=== PATIENT | female | born 1930 | race Caucasian/White ===

== ENCOUNTER 2016-08-25 12:19 | Emergency (ER) | payer MEDICARE, MEDICAID ==
[2016-06-03 12:09] VITALS: BMI 20.1
[~2016-08-25 12:19] MED LIST: ARICEPT5 MG PO; ASPIRIN EC81 M1 PO; DEPAKOTE250 MG PO; LISINOPRIL10 MG PO; TENORMIN25 MG PO; TIROSINT88 MCG PO; XANAX0.25 MG PO
[2016-08-25 14:40] LABS: BASOPHILS 0.1 % (0.0-2.0); EOSINOPHILS 0.1 % (0-7); HEMATOCRIT 44.3 % (36.0-48.0); HEMOGLOBIN 14.8 g/dL (12-16); IMMATURE GRANULOCYTES 0.4 % (0-5); LYMPHOCYTES 15.2 % (15-50); MCH 28.2 pg (26.0-34.0); MCHC 33.4 g/dL (31.0-37.0); MCV 84.5 fL (80.0-100.0); MEAN PLATELET VOLUME 9.7 fL (7.4-10.4); MONOCYTES 6.7 % (2-11); NEUTROPHILS 77.5 % (40-80); RBC 5.24 10x6/uL (4.00-5.40); RDW 13.5 % (11.5-14.5); WBC 10.9 10x3/uL (4.8-10.8)
[2016-08-25 14:42] LABS: PLATELET COUNT 280 10x3/uL (130-400)
[2016-08-25 15:02] LABS: ALBUMIN 3.6 g/dL (3.4-5.0); ANION GAP 14.3 mmol/L (8-16); BILIRUBIN - TOTAL 0.36 mg/dL (0.2-1.3); CALCIUM 9.2 mg/dL (8.5-10.1); CARBON DIOXIDE 25.3 mmol/L (21.0-32.0); CREATININE - SERUM 0.8 mg/dL (0.6-1.3); POTASSIUM - SERUM 4.6 mmol/L (3.5-5.1); PROTEIN - SERUM 7.7 g/dL (6.4-8.2)
[2016-08-25 15:42] LABS: APTT 28.7 SECONDS (22.8-39.4); INR 0.98 (0.85-1.17); PROTIME 12.8 SECONDS (11.6-15.0)
== END 2016-08-25 18:00 | disposition home or self-care (01) ==
LOC: D.ER 12:19
PROVIDERS: Emergency Medicine
DX: M79.604 Pain in right leg (principal); G30.9 Alzheimer's disease, unspecified; F02.80 Dementia in other diseases classified elsewhere, unspecified severity, without behavioral disturbance, psychotic disturbance, mood disturbance, and anxiety; I10 Essential (primary) hypertension; G20 Parkinson's disease; E03.9 Hypothyroidism, unspecified; E78.5 Hyperlipidemia, unspecified

== ENCOUNTER 2016-09-01 07:50 | Outpatient (CLI) | payer MEDICARE, MEDICAID ==
[~2016-09-01] VITALS: Ht 157.5 cm; Wt 50.9 kg
[2016-09-01 08:58] LABS: BASOPHILS 0.3 % (0.0-2.0); EOSINOPHILS 1.3 % (0-7); HEMATOCRIT 44.5 % (36.0-48.0); HEMOGLOBIN 14.7 g/dL (12-16); IMMATURE GRANULOCYTES 0.5 % (0-5); LYMPHOCYTES 32.7 % (15-50); MCH 28.7 pg (26.0-34.0); MCV 86.7 fL (80.0-100.0); MEAN PLATELET VOLUME 9.6 fL (7.4-10.4); NEUTROPHILS 56.2 % (40-80); RBC 5.13 10x6/uL (4.00-5.40); RDW 13.4 % (11.5-14.5); WBC 7.9 10x3/uL (4.8-10.8)
[2016-09-01 09:12] LABS: CALC OSMOLALITY 276 mosm/kg (275-300); CALCIUM 9.1 mg/dL (8.5-10.1); CARBON DIOXIDE 30.9 mmol/L (21.0-32.0); CHLORIDE - SERUM 100 mmol/L (98-107); CREATININE - SERUM 0.6 mg/dL (0.6-1.3); POTASSIUM - SERUM 4.3 mmol/L (3.5-5.1); SODIUM 136 mmol/L (136-145); UREA NITROGEN 19 mg/dL (7-18); eGFR NON AFRICAN AMERICAN > 90 mL/min (90-120)
[2016-09-01 09:13] LABS: GLUCOSE 158 mg/dL (74-106)
[2016-09-01 09:16] LABS: PLATELET COUNT 218 10x3/uL (130-400)
[2016-09-01] MEDS ORDERED: ARTANE2 MG PO (09:32)
[2016-09-01] MEDS ORDERED: HYDROCODON-ACE1 EAC7 PO (09:36)
[2016-09-01 09:45] VITALS: BP 185/88; Ht 157.5 cm; Wt 50.9 kg
--- NOTE | 2016-09-01 12:05 | NUR ---
1200-RECD TO ROOM. AROUSES EASILY TO NAME CALL. IV PATENT. DENIES PAIN.
--- NOTE | 2016-09-01 13:48 | NUR ---
1300-IV D/C AND UP TO BATHROOM. 1330-DISCHARGE INSTRUCTIONS REVIEWED WITH PATIENT AND GRANDDAUGHTER. D/C HOME VIA WHEELCHAIR
== END 2016-09-01 13:30 | disposition home or self-care (01) ==
LOC: D.MRI 07:50 → D.OPS 07:50 → D.MRI 10:30 → D.OPS 13:30
PROVIDERS: Anesthesiology
DX: M25.551 Pain in right hip (principal); F03.90 Unspecified dementia, unspecified severity, without behavioral disturbance, psychotic disturbance, mood disturbance, and anxiety; I25.10 Atherosclerotic heart disease of native coronary artery without angina pectoris; I10 Essential (primary) hypertension; Z95.5 Presence of coronary angioplasty implant and graft

== ENCOUNTER 2016-12-19 08:36 | Outpatient (CLI) | payer MEDICARE, MEDICAID ==
[~2016-12-19 08:36] MED LIST changes: +ARTANE2 MG PO; +HYDROCODON-ACE1 EAC7 PO
[2016-12-19 09:33] LABS: BASOPHILS 0.5 % (0-2); EOSINOPHILS 1.6 % (0-7); HEMATOCRIT 40.7 % (36.0-48.0); HEMOGLOBIN 13.8 g/dL (12-16); IMMATURE GRANULOCYTES 0.4 % (0-5); LYMPHOCYTES 33.2 % (15-50); MCH 29.9 pg (26.0-34.0); MCHC 33.9 g/dL (31.0-37.0); MCV 88.1 fL (80.0-100.0); MEAN PLATELET VOLUME 9.4 fL (7.4-10.4); MONOCYTES 9.6 % (2-11); NEUTROPHILS 54.7 % (40-80); PLATELET COUNT 254 10x3/uL (130-400); RBC 4.62 10x6/uL (4.00-5.40); RDW 13.6 % (11.5-14.5); WBC 5.5 10x3/uL (4.8-10.8)
[2016-12-19 09:49] LABS: CALC OSMOLALITY 278 mosm/kg (275-300); CALCIUM 8.8 mg/dL (8.5-10.1); CARBON DIOXIDE 27.9 mmol/L (21.0-32.0); CHLORIDE - SERUM 105 mmol/L (98-107); CREATININE - SERUM 0.7 mg/dL (0.6-1.3); GLUCOSE 118 mg/dL (74-106); POTASSIUM - SERUM 3.8 mmol/L (3.5-5.1); SODIUM 139 mmol/L (136-145); UREA NITROGEN 12 mg/dL (7-18); eGFR NON AFRICAN AMERICAN 84 mL/min (90-120)
[2016-12-19] MEDS ORDERED: ATIVAN0.5 MG PO (10:24)
[2016-12-19 10:27] VITALS: BP 217/92; Ht 157.5 cm
--- NOTE | 2016-12-19 14:44 | NUR ---
1400-IV DISCONTINUED, ASSISTED TO DRESS IN PERSONAL CLOTHES. DISCHARGE INSTRUCTIONS GIVEN, ESCORTED VIA WHEELCHAIR TO PERSONAL CAR, LEFT WITH GRANDDAUGHTER DRIVING.
== END 2016-12-19 14:00 ==
LOC: D.OPS 08:36 → D.MRI 08:36 → D.OPS 14:00
PROVIDERS: Anesthesiology
DX: M25.551 Pain in right hip (principal); I10 Essential (primary) hypertension; Z95.5 Presence of coronary angioplasty implant and graft; E03.9 Hypothyroidism, unspecified; G20 Parkinson's disease; R94.31 Abnormal electrocardiogram [ECG] [EKG]; R00.1 Bradycardia, unspecified

== ENCOUNTER 2016-12-22 18:36 | Emergency (ER) | payer MEDICARE, MEDICAID ==
[~2016-12-22 18:36] MED LIST changes: +ATIVAN0.5 MG PO
[2016-12-22 19:25] LABS: BASOPHILS 0.3 % (0-2); EOSINOPHILS 1.1 % (0-7); HEMATOCRIT 41.3 % (36.0-48.0); HEMOGLOBIN 13.7 g/dL (12-16); IMMATURE GRANULOCYTES 0.2 % (0-5); LYMPHOCYTES 30.6 % (15-50); MCH 29.1 pg (26.0-34.0); MCHC 33.2 g/dL (31.0-37.0); MCV 87.7 fL (80.0-100.0); MEAN PLATELET VOLUME 9.4 fL (7.4-10.4); MONOCYTES 12.8 % (2-11); PLATELET COUNT 225 10x3/uL (130-400); RBC 4.71 10x6/uL (4.00-5.40); RDW 13.6 % (11.5-14.5); WBC 6.5 10x3/uL (4.8-10.8)
[2016-12-22 19:55] LABS: ALBUMIN 3.3 g/dL (3.4-5.0); ALKALINE PHOSPHATASE 50 U/L (46-116); ALT (SGPT) 14 U/L (10-68); BILIRUBIN - TOTAL 0.33 mg/dL (0.2-1.3); CALC OSMOLALITY 280 mosm/kg (275-300); CALCIUM 9.4 mg/dL (8.5-10.1); CHLORIDE - SERUM 103 mmol/L (98-107); CREATININE - SERUM 0.7 mg/dL (0.6-1.3); GLUCOSE 122 mg/dL (74-106); POTASSIUM - SERUM 4.4 mmol/L (3.5-5.1); PROTEIN - SERUM 7.2 g/dL (6.4-8.2); SODIUM 138 mmol/L (136-145); UREA NITROGEN 25 mg/dL (7-18); eGFR NON AFRICAN AMERICAN 84 mL/min (90-120)
== END 2016-12-22 22:49 | disposition home or self-care (01) ==
LOC: D.ER 18:36
PROVIDERS: Physician Assistant Medical
DX: I10 Essential (primary) hypertension (principal); G30.9 Alzheimer's disease, unspecified; F02.80 Dementia in other diseases classified elsewhere, unspecified severity, without behavioral disturbance, psychotic disturbance, mood disturbance, and anxiety; E78.5 Hyperlipidemia, unspecified; E03.9 Hypothyroidism, unspecified

== ENCOUNTER 2017-02-04 05:27 | Day surgery (SDC) | payer MEDICARE, MEDICAID ==
[2017-02-02 10:02] LABS: CALC OSMOLALITY 279 mosm/kg (275-300); CALCIUM 8.6 mg/dL (8.5-10.1); CARBON DIOXIDE 31.7 mmol/L (21.0-32.0); CHLORIDE - SERUM 103 mmol/L (98-107); CREATININE - SERUM 0.7 mg/dL (0.6-1.3); GLUCOSE 125 mg/dL (74-106); POTASSIUM - SERUM 4.3 mmol/L (3.5-5.1); SODIUM 138 mmol/L (136-145); UREA NITROGEN 20 mg/dL (7-18); eGFR NON AFRICAN AMERICAN 84 mL/min (90-120)
[2017-02-02 10:05] LABS: BASOPHILS 0.4 % (0-2); HEMATOCRIT 39.1 % (36.0-48.0); HEMOGLOBIN 12.7 g/dL (12-16); IMMATURE GRANULOCYTES 0.4 % (0-5); LYMPHOCYTES 37.1 % (15-50); MCH 28.7 pg (26.0-34.0); MCHC 32.5 g/dL (31.0-37.0); MCV 88.5 fL (80.0-100.0); MEAN PLATELET VOLUME 9.4 fL (7.4-10.4); MONOCYTES 9.4 % (2-11); NEUTROPHILS 51.7 % (40-80); RBC 4.42 10x6/uL (4.00-5.40); RDW 14.2 % (11.5-14.5); WBC 7.4 10x3/uL (4.8-10.8)
[2017-02-02 10:09] LABS: PLATELET COUNT 279 10x3/uL (130-400)
[~2017-02-04] VITALS: Ht 154.9 cm; Wt 50.8 kg
[~2017-02-04 05:27] MED LIST changes: +ZESTRIL20 MG PO
[2017-02-04 08:32] VITALS: BP 127/57; Ht 154.9 cm; Wt 50.8 kg
--- NOTE | 2017-02-06 11:49 | HP ---
PATIENT: CHEPE CHRISTENSEN MEDICAL RECORD: [id number] ACCOUNT: [id number] LOCATION:[facility] : 32 ADMISSION DATE: 02/04/17 HISTORY AND PHYSICAL EXAMINATION HISTORY OF PRESENT ILLNESS: The patient is a very poor risk for an operative procedure to resect a rectal mass. We are going to proceed with argon plasma anticoagulation therapy. The patient has tremors. She has dementia. The risks, possible complications and alternatives to proctoscopy with argon plasma coagulation therapy to a rectal polyp at 15 cm were explained to the patient. She elects to proceed. HOME MEDICATIONS: Please see the nursing list. ALLERGIES: No known drug allergies. PAST MEDICAL AND SURGICAL HISTORY: Hypothyroidism, dementia, coronary stents times 1, gastroesophageal reflux, coronary artery disease and hypertension. PHYSICAL EXAMINATION: GENERAL: The patient appears chronically ill. Does not appear acutely ill. VITAL SIGNS: Reviewed. HEAD: External ears appear normal. EYES: Extraocular movements are intact. NECK: Trachea is midline. CHEST: No intercostal retractions. PULMONARY: Nonlabored, no stridor. ABDOMEN: Nontender. IMPRESSION: History of a rectal polyp, which is quite suspicious. PLAN: Biopsy and ablation with the argon plasma uniforms sales representative. TRANSINT:[id number] Voice Confirmation ID: [id number] DOCUMENT ID: [id number] MARIA G BLACK MD at 1149 CC: [id number] DICTATION DATE: 02/04/17 1141 SALES ORDER COORDINATOR: 02/04/17 1203 [facility] 02/04/17 [place] [address]
--- NOTE | 2017-02-06 11:49 | OP ---
PATIENT NAME: CHEPE CHRISTENSEN MEDICAL RECORD: [id number] :31 LOCATION:D.[facility] ADMISSION DATE: SURGEON: MARIA G BLACK MD DATE OF OPERATION: 02/04/2017 PREOPERATIVE DIAGNOSIS: Rectal polyp. POSTOPERATIVE DIAGNOSIS: Rectal polyp with significant regrowth of the rectal polyp, which was very suspicious for malignancy. PROCEDURES: Flexible proctoscopy with piecemeal snare polypectomy and then ablation of the base of the polyp with the argon plasma lehr loader. SURGEON: Maria G Black MD DELIVERY TRUCK DRIVER HEAVY: None. ESTIMATED BLOOD LOSS: Minimal. ANESTHESIA: General. COMPLICATIONS: None. HOSPITAL COURSE: The patient has a very suspicious rectal polyp. It is 15-16 cm. The patient underwent a polypectomy back in February 2016. 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 The patient is not candidate for chemotherapy or radiation even if this does represent a malignancy. The risks, possible complications and alternatives to treatment the procedure were explained to the patient. She elects to proceed. She is not a candidate for chemotherapy or radiation. Her family understands this and they are willing to take the risk that this lesion could degenerate into an invasive malignancy. 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 OPERATIVE COURSE: The patient was conveyed to the operating room electively on 02/04/2017. General anesthesia was induced by anesthesia staff. The patient was placed in the Padilla position. A digital rectal examination was performed. A colonoscope was inserted through the anus. It was advanced to the rectosigmoid junction. I took a snare and performed a piecemeal snare polypectomy of about 80% of the polyp. The polypoid pieces were then grasped with an endoscopic retrieval net and were withdrawn through the anus. I readvanced the endoscope. Cold endoscopic biopsies were obtained at the base of the polyp. The remaining base of the polyp was then ablated with the argon plasma lehr loader utilizing the right colon setting in the forced mode. I will see the patient in my office in 2-3 weeks. On digital examination, I can barely feel the polyp, so it may be within range of a local excision. It is on a fold. On the other hand, it may be very difficult to get to. TRANSINT:[id number] Voice Confirmation ID: [id number] DOCUMENT ID: [id number] OPERATIVE REPORT [id number] CHEPE CHRISTENSEN ROBERT MD at 1149 CC: ROZ LAWSON MD, KAVON SANTOS M.D.,[facility] and IVONNE COE [id number] DICTATION DATE: 02/04/17 1254 SPOT MAN: 02/04/17 1727 [facility] 02/04/17 [place] [id number]
== END 2017-02-04 14:20 | disposition home or self-care (01) ==
LOC: D.OPS 05:27 → D.PAN 16:30
PROVIDERS: Anesthesiology
DX: D12.8 Benign neoplasm of rectum (principal); R25.1 Tremor, unspecified; F03.90 Unspecified dementia, unspecified severity, without behavioral disturbance, psychotic disturbance, mood disturbance, and anxiety; E03.9 Hypothyroidism, unspecified; I25.10 Atherosclerotic heart disease of native coronary artery without angina pectoris; Z95.5 Presence of coronary angioplasty implant and graft; I10 Essential (primary) hypertension; K21.9 Gastro-esophageal reflux disease without esophagitis; Z01.812 Encounter for preprocedural laboratory examination

== ENCOUNTER 2017-03-17 18:51 | Emergency (ER) | payer MEDICARE, MEDICAID ==
[2017-02-04 08:32] VITALS: BMI 21.2
[2017-03-17 19:38] LABS: BASOPHILS 0 % (0-2); EOSINOPHILS 0 % (0-7); HEMATOCRIT 41.8 % (36.0-48.0); IMMATURE GRANULOCYTES 0.3 % (0-5); LYMPHOCYTES 15.7 % (15-50); MCH 29.3 pg (26.0-34.0); MCHC 33.5 g/dL (31.0-37.0); MCV 87.4 fL (80.0-100.0); MEAN PLATELET VOLUME 8.9 fL (7.4-10.4); MONOCYTES 12.3 % (2-11); NEUTROPHILS 71.7 % (40-80); RBC 4.78 10x6/uL (4.00-5.40); WBC 6.1 10x3/uL (4.8-10.8)
[2017-03-17 19:42] LABS: PLATELET COUNT 190 10x3/uL (130-400)
[2017-03-17 20:01] LABS: ALBUMIN 3.8 g/dL (3.4-5.0); ALKALINE PHOSPHATASE 42 U/L (46-116); ALT (SGPT) 19 U/L (10-68); CALC OSMOLALITY 266 mosm/kg (275-300); CALCIUM 8.6 mg/dL (8.5-10.1); CARBON DIOXIDE 23.5 mmol/L (21.0-32.0); CHLORIDE - SERUM 97 mmol/L (98-107); CREATININE - SERUM 0.7 mg/dL (0.6-1.3); GLUCOSE 149 mg/dL (74-106); PROTEIN - SERUM 7.2 g/dL (6.4-8.2); SODIUM 131 mmol/L (136-145); UREA NITROGEN 16 mg/dL (7-18); eGFR NON AFRICAN AMERICAN 84 mL/min (90-120)
[2017-03-17 21:26] LABS: APPEARANCE CLEAR (CLEAR); BILIRUBIN NEGATIVE (NEGATIVE); COLOR YELLOW (YELLOW); GLUCOSE NEGATIVE (NEGATIVE); KETONE MODERATE mg/dL (NEGATIVE); LEUKOCYTE ESTERASE 2+ (NEGATIVE); NITRITE NEGATIVE (NEGATIVE); PROTEIN 1+ mg/dL (NEGATIVE); UROBILINOGEN NORMAL (NORMAL)
[2017-03-17 21:28] LABS: BACTERIA MODERATE /hpf (NONE SEEN); RED CELLS - URINE 0-5 /hpf (0-5); WHITE CELLS - URINE 25-50 /hpf (0-5)
== END 2017-03-17 22:21 | disposition home or self-care (01) ==
LOC: D.ER 18:51
PROVIDERS: Emergency Medicine
DX: N39.0 Urinary tract infection, site not specified (principal); J02.9 Acute pharyngitis, unspecified; I10 Essential (primary) hypertension; E03.9 Hypothyroidism, unspecified; F03.90 Unspecified dementia, unspecified severity, without behavioral disturbance, psychotic disturbance, mood disturbance, and anxiety

== ENCOUNTER 2017-03-18 20:17 | Inpatient (IN) | payer MEDICARE, MEDICAID ==
[2017-03-18 21:45] LABS: BASOPHILS 0 % (0-2); EOSINOPHILS 0 % (0-7); HEMATOCRIT 41.1 % (36.0-48.0); HEMOGLOBIN 13.8 g/dL (12-16); IMMATURE GRANULOCYTES 0.1 % (0-5); LYMPHOCYTES 4.7 % (15-50); MCH 29.2 pg (26.0-34.0); MCHC 33.6 g/dL (31.0-37.0); MCV 86.9 fL (80.0-100.0); MEAN PLATELET VOLUME 9.4 fL (7.4-10.4); MONOCYTES 8.6 % (2-11); NEUTROPHILS 86.6 % (40-80); PLATELET COUNT 181 10x3/uL (130-400); RBC 4.73 10x6/uL (4.00-5.40); RDW 13.7 % (11.5-14.5)
[2017-03-18 22:01] LABS: ALBUMIN 3.6 g/dL (3.4-5.0); ALKALINE PHOSPHATASE 38 U/L (46-116); ALT (SGPT) 22 U/L (10-68); CALC OSMOLALITY 262 mosm/kg (275-300); CALCIUM 8.3 mg/dL (8.5-10.1); CHLORIDE - SERUM 95 mmol/L (98-107); CREATININE - SERUM 0.7 mg/dL (0.6-1.3); GLUCOSE 147 mg/dL (74-106); POTASSIUM - SERUM 3.9 mmol/L (3.5-5.1); PROTEIN - SERUM 7.2 g/dL (6.4-8.2); SODIUM 129 mmol/L (136-145); UREA NITROGEN 15 mg/dL (7-18); eGFR NON AFRICAN AMERICAN 84 mL/min (90-120)
[2017-03-18 22:21] LABS: WBC 8.6 10x3/uL (4.8-10.8)
[2017-03-18 23:29] LABS: APPEARANCE CLEAR (CLEAR); BILIRUBIN NEGATIVE (NEGATIVE); COLOR YELLOW (YELLOW); GLUCOSE NEGATIVE (NEGATIVE); KETONE SMALL mg/dL (NEGATIVE); NITRITE NEGATIVE (NEGATIVE); PROTEIN 1+ mg/dL (NEGATIVE); UROBILINOGEN NORMAL (NORMAL)
[2017-03-18 23:31] LABS: BACTERIA FEW /hpf (NONE SEEN); EPITHELIAL CELLS 0-5 /hpf (0-5); RED CELLS - URINE 0-5 /hpf (0-5); WHITE CELLS - URINE 0-5 /hpf (0-5)
--- NOTE | 2017-03-19 01:10 | NUR ---
RECIEVED FROM ER VIA [employer]. ALERT ORIENTED TO SELF ONLY. SPEECH IS CLEAR NONPRODUCTIVE COUGH NOTED. SL TO LEFT FOREARM WITHOUT REDNESS OR EDEMA NOTED. CL IN REACH. BED ALARM ON.
[2017-03-19 04:00] VITALS: BP 149/69
[2017-03-19 05:55] VITALS: BP 155/68; BMI 21.5
[2017-03-19 06:13] LABS: BASOPHILS 0.1 % (0-2); EOSINOPHILS 0 % (0-7); HEMATOCRIT 36.1 % (36.0-48.0); HEMOGLOBIN 12.1 g/dL (12-16); IMMATURE GRANULOCYTES 0.1 % (0-5); LYMPHOCYTES 12.7 % (15-50); MCH 29.2 pg (26.0-34.0); MCHC 33.5 g/dL (31.0-37.0); MCV 87.2 fL (80.0-100.0); MEAN PLATELET VOLUME 9.4 fL (7.4-10.4); MONOCYTES 10.2 % (2-11); NEUTROPHILS 76.9 % (40-80); PLATELET COUNT 198 10x3/uL (130-400); RBC 4.14 10x6/uL (4.00-5.40); WBC 8.1 10x3/uL (4.8-10.8)
[2017-03-19 06:31] LABS: CALCIUM 7.3 mg/dL (8.5-10.1); CARBON DIOXIDE 25.5 mmol/L (21.0-32.0); CHLORIDE - SERUM 99 mmol/L (98-107); CREATININE - SERUM 0.7 mg/dL (0.6-1.3); POTASSIUM - SERUM 4.3 mmol/L (3.5-5.1); SODIUM 133 mmol/L (136-145); eGFR NON AFRICAN AMERICAN 84 mL/min (90-120)
[2017-03-19 06:33] LABS: CALC OSMOLALITY 263 mosm/kg (275-300); GLUCOSE 87 mg/dL (74-106); UREA NITROGEN 11 mg/dL (7-18)
--- NOTE | 2017-03-19 07:45 | NUR ---
PATIENT SITTING UP IN BED WITH IV INTACT. NO COMPLAINTS AT THIS TIME. CALL LIGHT WITHIN REACH.
[2017-03-19 09:46] VITALS: BP 143/51
[2017-03-19 12:36] VITALS: BP 145/59
[2017-03-19 13:54] VITALS: BMI 21.5
--- NOTE | 2017-03-19 14:52 | NUR ---
Patient Name: CHEPE CHRISTENSEN Admission Status: ER Accout number: [id number] Admission Date: 03-18-2017 : 1930 Admission Diagnosis: Attending: NELLY, Current LOS: 1 Anticipated DC Date: 03-23-2017 Planned Disposition: Home with Home Health Primary Insurance: [facility] Discharge Planning Comments: CM MET WITH PATIENTS DAUGHTER (SCOTTIE) REGARDING D/C NEEDS AND PLANS. PATIENT LIVES WITH GRANDDAUGHTER AND IS CURRENT WITH [email or web address]. PATIENT HAS 2 STEPS TO ENTER HOME AND NO STAIRS INSIDE. PATIENT NEEDS HELP SHOWERING AND WITH MEDICATION. DAUGHTER STATES SHE DOES DRESS HERSELF MOST OF TIME. PATIENT USES A WALKER, AND HAS A BS COMMODE, AND SHOWER CHAIR AT HOME. PATIENT GOES TO THE CARING PLACE. PATIENTS PCP IS DR. COE AND PHARMACY IS [facility]. CM WILL CONTINUE TO FOLLOW PATIENT WITH D/C NEEDS AND PLANS. PCP DR. CAROLIN BELTRANT [place]- [phone] SCOTTIE (DAUGHTER) [phone] Manager Clinical: So Ross How many steps to enter\exit or inside your home? 2 W/RAILS 0 * PCP DR. COE 0 * Pharmacy [facility] 0 * Preadmission Environment Home with Family 0 * ADLs Partial Dependent 0 * Partial ADLs (Assistance needed) Ambulation Bathing Medication Management Toileting Transfers 0 * List name and contact numbers for known caregivers / representatives who currently or will assist patient after discharge: SCOTTIE COSTA (DAUGHTER) [phone] 0 * Community resources currently utilized Home Health 0 * Please name any agencies selected above. [facility] 0 * Additional services required to return to the preadmission environment? Yes 0 * Can the patient safely return to the preadmission environment? Yes 0 * Has this patient been hospitalized within the prior 30 days at any hospital? No 0 Grand Total: 0
[2017-03-19 16:37] VITALS: BP 143/60
--- NOTE | 2017-03-19 19:46 | NUR ---
PT IS UP IN BED TRYING TO GET TO BSC, REMINDED PT TO USE CALL LIGHT IF SHE NEEDS TO GET UP, PT SHAKES VERY BAD ASKED GYM MANAGER TO CALL FOR ASSISTANCE IF NEEDED WELL, HELPED PT BACK IN BED, CALL LIGHT IN REACH
[2017-03-19 20:00] VITALS: BP 148/68
--- NOTE | 2017-03-19 22:36 | NUR ---
PT UP TO BSC AGAIN WITHOUT CALLING FOR ASSISTANCE, REENFORCED IMPORTANCE OF ASKING FOR ASSISTANCE WHEN GETTING UP, LEFT PT DOOR OPEN, CALL LIGHT IN REACH
[2017-03-20] VITALS: BP 133/67
[2017-03-20 04:00] VITALS: BP 159/72
--- NOTE | 2017-03-20 05:28 | NUR ---
RN NOTE: PT RESTING QUIETLY IN SUPINE POSITION WITH EYES CLOSED. LEFT FA IV PATENT WITH NS INFUSING AT 75 ML / HR. SCD'S IN USE ON BLE. BED ALARM IN USE FOR SAFETY. WILL CONTNUE TO MONITOR FOR NEEDS.
[2017-03-20 06:18] LABS: BASOPHILS 0.3 % (0-2); EOSINOPHILS 2.8 % (0-7); HEMATOCRIT 33.9 % (36.0-48.0); HEMOGLOBIN 11.3 g/dL (12-16); LYMPHOCYTES 22.8 % (15-50); MCHC 33.3 g/dL (31.0-37.0); MCV 86.9 fL (80.0-100.0); MEAN PLATELET VOLUME 9.4 fL (7.4-10.4); MONOCYTES 12.7 % (2-11); NEUTROPHILS 61.4 % (40-80); PLATELET COUNT 182 10x3/uL (130-400); RDW 14.1 % (11.5-14.5); WBC 3.9 10x3/uL (4.8-10.8)
[2017-03-20 06:40] LABS: CARBON DIOXIDE 24.1 mmol/L (21.0-32.0); CHLORIDE - SERUM 105 mmol/L (98-107); CREATININE - SERUM 0.6 mg/dL (0.6-1.3); GLUCOSE 79 mg/dL (74-106); SODIUM 135 mmol/L (136-145); eGFR NON AFRICAN AMERICAN > 90 mL/min (90-120)
[2017-03-20 06:53] LABS: CALC OSMOLALITY 266 mosm/kg (275-300); POTASSIUM - SERUM 3.6 mmol/L (3.5-5.1); UREA NITROGEN 6 mg/dL (7-18)
--- NOTE | 2017-03-20 07:05 | NUR ---
RECEIVED REPORT, ASSUMED CARE OF PT. PT RESTING WITH EYES SHUT, EASILY AROUSED. BED ALARM ON. L FOREARM IV INFUSING ORDERED, DRSG CLEAN, DRY AND INTACT. BILATERAL SCD'S IN PLACE. NO COMPLAINTS AT THIS TIME. BED IN LOWEST POSITION, SIDE RAILS UP X 2, CALL LIGHT WITHIN REACH.
[2017-03-20 08:22] VITALS: BP 132/33
[2017-03-20 12:40] VITALS: BP 145/88
[2017-03-20 15:59] VITALS: BP 128/78
--- NOTE | 2017-03-20 18:30 | NUR ---
PT FOUND ON FLOOR BY MED II NURSE, PT AND NURSE REPORTED SHE SLIPPED OUT OF BED WHILE TRYING TO GET TO BEDSIDE COMMODE, LANDED ON FLOOR AND GOT BACK UP TO BSC. [facility] ANSWERING SERVICE CALLED AND WILL PAGE
--- NOTE | 2017-03-20 18:49 | NUR ---
VITALS ARE FOLLOWS FROM FALL B/P 126/84, PULSE 86 BPM, RESPIRATIONS 18, AND TEMP 98.9. PT HAS NO COMPLAINTS OF PAIN. FAMILY NOTIFIED VIA VOICEMAIL TO RETURN CALL.
--- NOTE | 2017-03-20 19:02 | NUR ---
DR. VILLEGAS RETURNED CALL, NOTIFIED OF PT FALL
[2017-03-20 20:00] VITALS: BP 110/62
--- NOTE | 2017-03-20 22:06 | NUR ---
REC'D LYING IN BED. ALERT AND ORIENTED X4. DENIED PAIN AT THIS TIME. FELL 30MINS BEFORE MY SHIFT STARTED. DAUGHTER CALLED AROUND 2144, INFORMED HER OF THE SITUATION. WILL CONT TO [facility]. INSTRUCTED TO CALL IF NEEDED ANYTHING, VERBALIZED UNDERSTANDING. BED LOW, LOCKED, CALL LIGHT IN REACH, ALARM ON. NO DISTRESS NOTED.
[2017-03-21 04:00] VITALS: BP 151/66
--- NOTE | 2017-03-21 04:00 | NUR ---
PT RESTING QUIETLY, EYES CLOSED. RESP EVEN, UNLABORED. NO DISTRESS NOTED. CONTINUE UNDERWRITING OPERATIONS MANAGER'S PLAN OF CARE.
--- NOTE | 2017-03-21 07:07 | NUR ---
REPORT RECIEVED, ASSUMED CARE OF PT. RESTING WITH EYES SHUT, EASILY AROUSED. L FOREARM IV INFUSING ORDERED, DRSG C/D/I. BED ALARM ON. SCD'S IN PLACE. INSTRUCTED PT ON THE IMPORTANCE OF USING THE CALL LIGHT BEFORE GETTING OUT OF BED. NO NEEDS VOICED. BED IN LOWEST POSITION, SIDE RAILS UP X 2, CALL LIGHT WITHIN REACH.
[2017-03-21 11:13] VITALS: BP 192/83
[2017-03-21] MEDS ORDERED: LEVAQUIN750 MG PO (12:29)
[2017-03-21] MEDS ORDERED: FLORAJEN3 CAPS460 MG PO (12:29)
--- NOTE | 2017-03-21 13:55 | NUR ---
Patient for discharge to home with home health. Patient has been with [facility] previously. BALTA spoke with Dulce, the bellperson nurse, regarding referral. CM faxed referral to [phone]. Patient is scheduled to be admitted March 22.
--- NOTE | 2017-03-21 14:06 | NUR ---
PT DISCHARGE INSTUCTIONS GIVEN, FAMILY AND PT VERBALIZED UNDERSTANDING. L FOREARM IV DISCONTNUED, BLEED CONTROL, DRSG APPLIED. PERSONAL BELONGINGS WITH PT, PT TRANSPORTED WITH FAMILY VIA WHEELCHAIR TO FAMILY VEHICLE.
--- NOTE | 2017-03-21 14:09 | NUR ---
CM visited at the bedside to advise the family of the home health plan for admission on Thursday. The patient and daughter were at the bedside. Daughter confirms [facility] is the provider. Thursday would be fine per the daughter.
== END 2017-03-21 14:16 | disposition home health service (06) | DRG 689 ==
LOC: D.ER 20:17 → D.MS 23:43
PROVIDERS: Family Medicine; ADMIT Family Medicine
DX: N39.0 Urinary tract infection, site not specified (principal); J18.9 Pneumonia, unspecified organism; E87.1 Hypo-osmolality and hyponatremia; F03.90 Unspecified dementia, unspecified severity, without behavioral disturbance, psychotic disturbance, mood disturbance, and anxiety; G20 Parkinson's disease; I25.10 Atherosclerotic heart disease of native coronary artery without angina pectoris; I10 Essential (primary) hypertension; E03.9 Hypothyroidism, unspecified; R26.81 Unsteadiness on feet

== ENCOUNTER 2018-05-18 09:34 | Day surgery (SDC) | payer MEDICARE, MEDICAID ==
[~2018-05-18] VITALS: Ht 154.9 cm; Wt 54.5 kg
--- NOTE | ~2018-05-18 | OP ---
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 PROCEDURES: 1. Flexible sigmoidoscopy. 2. Polypectomy utilizing the endoscopic mucosal resection technique with snare, epinephrine injection as well as injection of Eleview. 3. Ablation of polypoid tissue with the argon plasma cnc maintenance technician. 4. Placement of 5 endoscopic clips to reinforce the polypectomy site. SURGEON: Broderick Black MD AUTO BODY MECHANIC: None. BLOOD LOSS: Minimal. ANESTHESIA: IV sedation. COMPLICATIONS: None. The risks, possible complications, and alternatives to the procedure were explained to the patient's family. They understand that this mass may degenerate into a malignancy. We all understand that she would be a very poor operative candidate, would not want to have chemotherapy or radiation. Due to her infirmities, it is very likely that she will succumb to some other disease process rather than this rectal mass. Our hope is to keep removing the mass as it grows to help prevent from degenerating into a malignancy, but also to prevent significant anemia from hematochezia and also to prevent obstruction of the rectum by this recurrent mass. She was to have this done in 6 months. She elected to wait about a year before having the procedure done again. OPERATIVE COURSE: The patient was conveyed to endoscopy suite electively on 05/18/2018. IV sedation was induced by the anesthesia staff. The patient was placed in the Padilla position. A digital rectal examination was performed. A gastroscope was inserted through the anus. It was easily advanced to the sigmoid colon. Several diverticula were noted. I then withdrew into the rectum. At 15 cm, the mass, which was semi-pedunculated and was about a 4 cm mass, was easily identified. I advanced the sclerotherapy needle. At several areas around the base of the polypoid mass, I performed a submucosal injection of epinephrine for postoperative hemorrhage control. Then, at 4 quadrants around the polyp, I advanced a sclerotherapy needle and performed a submucosal injection of Eleview. I then advanced the snare. I was able to perform a piecemeal snare polypectomy and was able to remove about 90% of the polyp in this fashion. Endoscopic retrieval nets were advanced and I was able to withdraw all the snared material. I then took cold endoscopic biopsy forceps OPERATIVE REPORT [id number] CHEPE CHRISTENSEN and removed the rest of the polypoid mass. It was somewhat ulcerated at one area, which is worrisome for a malignancy. I then took the argon plasma cnc maintenance technician with the right colon setting in the forced mode and ablated any residual polypoid tissue. In order to reinforce the polypectomy site, I placed a row of 5 endoscopic clips. I saw no evidence of full-thickness perforation. There was no further bleeding. The patient was then conveyed back to her outpatient surgery room. I will see the patient in my office in 2-3 weeks. I will plan for her next flexible sigmoidoscopy to take place in the GI lab with the argon plasma cnc maintenance technician in 6 months. TRANSINT:[id number] Voice Confirmation ID: [id number] DOCUMENT ID: [id number] BRODERICK BLACK MD at 1544 CC: IVONNE COE [id number] DICTATION DATE: 05/18/18 1209 MANAGER HEART FAILURE: 05/18/18 1321 [facility] 05/18/18 [facility] [address] [place] [address]
--- NOTE | ~2018-05-18 | HP ---
PATIENT: CHEPE CHRISTENSEN MEDICAL RECORD: [id number] ACCOUNT: [id number] LOCATION:[facility] : 32 ADMISSION DATE: 05/18/18 PCP: IVONNE COE MD HISTORY AND PHYSICAL EXAMINATION HISTORY OF PRESENT ILLNESS: The patient is here for flexible proctoscopy with ablation of any regrowth of any polypoid tissue. The patient in the past had a rectal polyp that was suspicious for a malignancy. She is a very poor operative candidate and the patient and her family have elected for the patient to undergo frequent endoscopic procedures and ablation of any polypoid or malignant tissue as the patient likely has a limited lifespan and does not want to undergo aggressive treatment of a malignancy if one is identified. During the patient's last proctoscopy, she was found to have a tubulovillous adenoma with focal high-grade atypia/dysplasia. The risks, possible complications, and alternatives to procedure were explained to the patient. She elects to proceed. ALLERGIES: No known drug allergies. PAST MEDICAL AND SURGICAL HISTORY: Hypothyroidism, on replacement therapy; hypertension; anxiety; history of a rectal polyp. PHYSICAL EXAMINATION: GENERAL: The patient does not appear acutely ill. She does appear chronically ill. VITAL SIGNS: Reviewed. EARS: External ears appear normal. She is hard of hearing. EYES: Extraocular movements are intact. EXTREMITIES: No peripheral cyanosis. NEUROLOGIC: She has a tremor. IMPRESSION: History of rectal polyp at 15 cm that contained a focus of high-grade dysplasia. PLAN: EGD, polypectomy utilizing argon plasma black top roller and probable endoscopic mucosal resection technique. TRANSINT:[id number] Voice Confirmation ID: [id number] DOCUMENT ID: [id number] MARIA G BLACK MD at 1544 CC: IVONNE COE [id number] DICTATION DATE: 05/18/18 1101 MARKETING LIAISON: 05/18/18 1134 [facility] 05/18/18 [facility] [address] [place] [address]
[~2018-05-18 09:34] MED LIST changes: +FLORAJEN3 CAPS460 MG PO; +LEVAQUIN750 MG PO
[2018-05-18] MEDS ORDERED: MOBIC7.5 MG PO (09:58)
[2018-05-18 10:04] VITALS: Ht 154.9 cm; Wt 54.5 kg
[2018-05-18 10:29] LABS: BASOPHILS 0.5 % (0-2); EOSINOPHILS 1.6 % (0-7); HEMATOCRIT 41.7 % (36.0-48.0); HEMOGLOBIN 14.3 g/dL (12-16); IMMATURE GRANULOCYTES 0.2 % (0-5); LYMPHOCYTES 31.1 % (15-50); MCH 29.4 pg (26.0-34.0); MCHC 34.3 g/dL (31.0-37.0); MCV 85.6 fL (80.0-100.0); MEAN PLATELET VOLUME 8.9 fL (7.4-10.4); MONOCYTES 8.3 % (2-11); NEUTROPHILS 58.3 % (40-80); RBC 4.87 10x6/uL (4.00-5.40); RDW 13.6 % (11.5-14.5); WBC 6.4 10x3/uL (4.8-10.8)
[2018-05-18 10:34] LABS: PLATELET COUNT 263 10x3/uL (130-400)
[2018-05-18 10:40] LABS: CALC OSMOLALITY 264 mosm/kg (275-300); CALCIUM 8.8 mg/dL (8.5-10.1); CARBON DIOXIDE 27.4 mmol/L (21.0-32.0); CHLORIDE - SERUM 98 mmol/L (98-107); CREATININE - SERUM 0.6 mg/dL (0.6-1.3); GLUCOSE 81 mg/dL (74-106); POTASSIUM - SERUM 4.5 mmol/L (3.5-5.1); SODIUM 133 mmol/L (136-145); UREA NITROGEN 13 mg/dL (7-18); eGFR NON AFRICAN AMERICAN > 90 mL/min (90-120)
== END 2018-05-18 13:15 | disposition home or self-care (01) ==
LOC: D.OPS 09:34
PROVIDERS: Anesthesiology
DX: D12.7 Benign neoplasm of rectosigmoid junction (principal); E03.9 Hypothyroidism, unspecified; I10 Essential (primary) hypertension; F41.9 Anxiety disorder, unspecified; Z01.812 Encounter for preprocedural laboratory examination